=== PATIENT | female | born 1975 | race Hispanic/Latino ===

== ENCOUNTER 2020-08-21 11:33 | Outpatient (CLI) | payer BC ==
--- NOTE | 2020-08-28 08:10 | Mammography Report ---
DIGITAL SCREENING MAMMOGRAM WITH CAD, 08/21/2020 CLINICAL INFORMATION / INDICATION: Routine screening mammography. ROUTINE TECHNIQUE: Digital bilateral 2D mammography was obtained in the craniocaudal and mediolateral obliqu e projections. This examination was interpreted with the benefit of Computer-Aided Detection analysis . COMPARISON: 12/07/2016 and 08/09/2017 FINDINGS: Breast Density: There are scattered areas of fibroglandular density. No dominant mass, suspicious calcifications, or architectural distortion in the left breast. There is a focal asymmetric density in the central right breast approximately 3 to 4 cm posterior to the nipple. IMPRESSION: Focal asymmetric density in the right breast requires further evaluation. Spot compressio n views and possible ultrasound are recommended. Follow up recommendation: Special View: Spot BI-RADS Category 0: Incomplete. Needs additional imaging evaluation and/or prior mammograms for whit mathias. A "normal" or negative report should not discourage follow up or biopsy of a clinically significant f inding. A written summary of these findings will be mailed to the patient. The patient will be entered into a mammography reporting system which will generate a reminder letter for the patient's next appointmen t at the appropriate interval. The [employer] recommends yearly mammograms starting at age 40 and continuing as l luda as a woman is in good health. Breast MRI is recommended for women with an approximate 20-25% or greater lifetime risk of breast cancer, including women with a strong family history of breast or ova chandler cancer or who have been treated for Hodgkin's disease. Signer Name: Norman Siddiqui MD Signed: 08/28/2020 8:05 AM Workstation Name: [email or web address]
== END 2020-08-21 11:34 | disposition home or self-care (01) ==
LOC: MAMMO 11:33
PROVIDERS: ATTEND Surgery
DX: Z12.31 Encounter for screening mammogram for malignant neoplasm of breast (principal)
CPT/HCPCS: 77067

== ENCOUNTER 2020-09-25 10:16 | Outpatient (CLI) | payer BC ==
--- NOTE | 2020-09-25 11:51 | Ultrasound Report ---
RIGHT DIGITAL DIAGNOSTIC MAMMOGRAM WITH CAD CONVENTIONAL, 09/25/2020 RIGHT LIMITED BREAST ULTRASOUND CLINICAL INFORMATION / INDICATION: Follow-up of focal asymmetry in right breast seen on recent screen ing mammogram. TECHNIQUE: Digital right mammographic imaging was performed. Spot compression views were obtained. Li mited ultrasound was performed. This examination was interpreted with the benefit of Computer-Aided D etection (CAD) analysis. COMPARISON: 08/21/2020 FINDINGS: Breast Density: There are scattered areas of fibroglandular density. MAMMOGRAPHIC FINDINGS: The previously described central focal asymmetry is less distinct on spot comp ression imaging. A benign calcified mass located posteriorly/medially is unchanged. No other signific ant abnormality. ULTRASOUND FINDINGS: Targeted ultrasound evaluation was performed of the area of interest. Mildly d ilated ducts are seen in the 3:00 position without a distinct intraductal lesion. No other significan t abnormality. IMPRESSION: No mammographic or sonographic evidence of malignancy. Benign findings as above. Follow up recommendation: Routine yearly BI-RADS Category 2: Benign. A "normal" or negative report should not discourage follow up or biopsy of a clinically significant f inding. A written summary of these findings will be mailed to the patient. The patient will be entered into a mammography reporting system which will generate a reminder letter for the patient's next appointmen t at the appropriate interval. According to the [employer], yearly mammograms are recommended starting at age 40 and continuing as long as a woman is in good health. Breast MRI is recommended for women with an emilee roximately 20-25% or greater lifetime risk of breast cancer, including women with a strong family his tory of breast or ovarian cancer and women who have been treated for Hodgkin's disease. Signer Name: Ankit Marroquin MD Signed: 09/25/2020 11:47 AM Workstation Name: [email or web address]
== END 2020-09-25 10:17 | disposition home or self-care (01) ==
LOC: MAMMO 10:16
PROVIDERS: ATTEND Surgery
DX: R92.8 Other abnormal and inconclusive findings on diagnostic imaging of breast (principal)